=== PATIENT | female | born 1995 | race African-American/Black ===

== ENCOUNTER 2017-05-13 17:09 | Emergency (ER) | payer MEDICAID, OTHER ==
[~2017-05-13] VITALS: Ht 180.3 cm; Wt 80.0 kg
[2017-05-13] MEDS ORDERED: MORPHINE SULFATE 4 MG/ML CPJ (NOT FOR IM USE) IV STA (21:57)
[2017-05-13] MEDS ORDERED: ONDANSETRON HCL 4MG/2ML VIAL IV STA (21:57)
[2017-05-13] MEDS ORDERED: SODIUM CHLORIDE 0.9% 1,000 ML IV ONE (21:57)
[2017-05-13 22:36] LABS: BASOPHILS % 0.8 % (0.0-2.0); EOSINOPHILS % 1.6 % (0.0-5.0); HEMATOCRIT. 38.5 % (36.0-48.0); HEMOGLOBIN. 12.7 g/dL (12.0-16.0); MEAN CORPUSCULAR HEMOGLOBIN 27.9 pg (28.0-32.0); MEAN CORPUSCULAR VOLUME 84.2 fL (81.0-99.0); MEAN PLATELET VOLUME 8.5 fl (7.4-10.4); MONOCYTES % 10.1 % (2.0-8.0); NEUTROPHILS % 46.5 % (40.0-76.0); PLATELET 166 x1000/uL (130-400); RED BLOOD CELL COUNT 4.57 mill/uL (4.2-5.4); RED CELL DISTRIBUTION WIDTH 13.7 % (11.6-14.6)
[2017-05-13 22:43] LABS: CHLORIDE 106 mEq/L (98-107)
[2017-05-13 22:44] LABS: CARBON DIOXIDE 28 mEq/L (21-32)
[2017-05-13 23:00] LABS: CLARITY URINE CLEAR (CLEAR); COLOR URINE YELLOW (YELLOW); GLUCOSE URINE NEGATIVE (NEGATIVE); KETONES URINE TRACE (NEGATIVE); LEUKOCYTE ESTERASE URINE NEGATIVE (NEGATIVE); NITRITE URINE NEGATIVE (NEGATIVE); OCCULT BLOOD URINE NEGATIVE (NEGATIVE); PROTEIN URINE 1+ (NEGATIVE); SPECIFIC GRAVITY URINE 1.029 (1.005-1.030)
[2017-05-13 23:25] LABS: UCG SCREEN NEGATIVE
[2017-05-14 00:17] VITALS: BP 115/78
== END 2017-05-14 00:31 | disposition home or self-care (01) ==
LOC: ER 17:09
DX: R10.84 Generalized abdominal pain (principal); Z98.890 Other specified postprocedural states
CPT/HCPCS: 36415; 80053; 81001; 81025; 83690; 85025; 96361; 96374; 96375; 99285; J2270; J2405; J7030; Z7610

== ENCOUNTER 2018-12-02 04:37 | Observation (INO) | payer OTHER ==
[~2018-12-02] VITALS: Ht 180.3 cm; Wt 102.5 kg
[2018-12-02] MEDS ORDERED: LACTATED RINGERS 1,000 ML IV SCH (05:45)
[2018-12-02] MEDS ORDERED: ACETAMINOPHEN 500MG TABLET PO SCH (05:45)
[2018-12-02] MEDS ORDERED: CEFAZOLIN 2,000 MG in DEXT 5% WATER 100 ML IV SCH (06:00)
[2018-12-02 06:14] LABS: CLARITY URINE CLOUDY (CLEAR); COLOR URINE YELLOW (YELLOW); KETONES URINE NEGATIVE (NEGATIVE); LEUKOCYTE ESTERASE URINE 1+ (NEGATIVE); NITRITE URINE NEGATIVE (NEGATIVE); OCCULT BLOOD URINE 2+ (NEGATIVE); PH URINE 7.5 (4.5-8.0); PROTEIN URINE 3+ (NEGATIVE); UROBILINOGEN URINE 0.2 E.U./dL (0.2-1.0)
== END 2018-12-02 08:20 | disposition home or self-care (01) ==
LOC: 8 EST LDRP 04:37
PROVIDERS: ADMIT Obstetrics & Gynecology; ATTEND Obstetrics & Gynecology
DX: O26.893 Other specified pregnancy related conditions, third trimester (principal); R10.9 Unspecified abdominal pain; Z3A.35 35 weeks gestation of pregnancy
CPT/HCPCS: 81003; 87077; 87086; 87186; 96365; 99281; G0378; J0690; J7060; 96360; 96361

== ENCOUNTER 2019-09-12 17:47 | Emergency (ER) | payer OTHER ==
[~2019-09-12] VITALS: Ht 182.9 cm; Wt 120.0 kg
[2019-09-12 18:55] VITALS: BP 137/57
[2019-09-12] MEDS ORDERED: IBUPROFEN 800MG TABLET PO ONE (19:00)
== END 2019-09-12 23:54 | disposition home or self-care (01) ==
LOC: ER 17:47
DX: S39.012A Strain of muscle, fascia and tendon of lower back, initial encounter (principal); V49.50XA Passenger injured in collision with unspecified motor vehicles in traffic accident, initial encounter; Y93.89 Activity, other specified; Y92.410 Unspecified street and highway as the place of occurrence of the external cause
CPT/HCPCS: 99282

== ENCOUNTER 2020-03-27 11:52 | Emergency (ER) | payer OTHER ==
[~2020-03-27] VITALS: Ht 180.3 cm; Wt 104.0 kg
[2020-03-27] MEDS ORDERED: FAMOTIDINE 20MG/2ML VIAL IV STA (12:52)
[2020-03-27] MEDS ORDERED: VISCOUS LIDOCAINE 2% 15 ML UDC PO STA (12:52)
[2020-03-27] MEDS ORDERED: ONDANSETRON HCL 4MG/2ML INJ IV STA (12:52)
[2020-03-27] MEDS ORDERED: MAGNESIUM/ALUMINUM HYDROXIDE/SIMETHICONE 30ML UDC PO STA (12:52)
[2020-03-27 13:02] LABS: CLARITY URINE CLEAR (CLEAR); COLOR URINE YELLOW (YELLOW); KETONES URINE NEGATIVE (NEGATIVE); LEUKOCYTE ESTERASE URINE NEGATIVE (NEGATIVE); NITRITE URINE NEGATIVE (NEGATIVE); OCCULT BLOOD URINE 1+ (NEGATIVE); PROTEIN URINE NEGATIVE (NEGATIVE); SPECIFIC GRAVITY URINE 1.017 (1.005-1.030); UROBILINOGEN URINE 0.2 E.U./dL (0.2-1.0)
[2020-03-27 13:03] LABS: BASOPHILS % 0.7 % (0.0-2.0); EOSINOPHILS % 2.1 % (0.0-5.0); HEMATOCRIT. 40.4 % (36.0-48.0); HEMOGLOBIN. 13.5 g/dL (12.0-16.0); LYMPHOCYTES % 39.5 % (20.0-50.0); MEAN CORPUSCULAR HEMOGLOBIN 28.4 pg (28.0-32.0); MEAN CORPUSCULAR VOLUME 84.9 fL (81.0-99.0); MEAN PLATELET VOLUME 8.8 fl (7.4-10.4); MONOCYTES % 11.5 % (2.0-8.0); NEUTROPHILS % 46.2 % (40.0-76.0); PLATELET 199 x1000/uL (130-400); RED BLOOD CELL COUNT 4.76 mill/uL (4.2-5.4); RED CELL DISTRIBUTION WIDTH 14.2 % (11.6-14.6)
[2020-03-27 13:05] LABS: CHLORIDE 108 mEq/L (98-107)
[2020-03-27 13:19] LABS: B-HCG QUANTITATIVE 59 mIU/mL (<3)
[2020-03-27 15:00] VITALS: BP 113/66
== END 2020-03-27 15:16 | disposition home or self-care (01) ==
LOC: ER 11:52
DX: R10.13 Epigastric pain (principal); R11.0 Nausea
CPT/HCPCS: 36415; 76830; 76856; 80053; 81003; 81025; 83690; 84702; 85025; 96374; 96375; 99284; J2405; J3490

== ENCOUNTER 2022-03-26 06:23 | Emergency (ER) | payer MEDICAID, OTHER ==
[~2022-03-26] VITALS: Ht 180.3 cm; Wt 105.0 kg
[2022-03-26] MEDS ORDERED: HYDROCODONE/ACETAMINOPHEN 5/325MG TABLET PO ONE (08:45)
[2022-03-26] MEDS ORDERED: IBUPROFEN 600MG TABLET PO ONE (08:45)
[2022-03-26 09:55] VITALS: BP 96/69
[2022-03-26 10:48] LABS: CLARITY URINE CLOUDY (CLEAR); COLOR URINE YELLOW (YELLOW); KETONES URINE TRACE (NEGATIVE); LEUKOCYTE ESTERASE URINE 2+ (NEGATIVE); NITRITE URINE POSITIVE (NEGATIVE); OCCULT BLOOD URINE NEGATIVE (NEGATIVE); PH URINE 5.5 (4.5-8.0); PROTEIN URINE TRACE (NEGATIVE); SPECIFIC GRAVITY URINE 1.025 (1.005-1.030); UROBILINOGEN URINE 0.2 E.U./dL (0.2-1.0)
[2022-03-26] MEDS ORDERED: CEFTRIAXONE SODIUM 1 G/VIAL IM ONE (11:00)
[2022-03-26] MEDS ORDERED: CEPH500C2 MT (11:27)
== END 2022-03-26 11:26 | disposition left against medical advice (07) ==
LOC: ER 06:23
DX: N39.0 Urinary tract infection, site not specified (principal); B34.9 Viral infection, unspecified; Z86.16 Personal history of COVID-19; Z20.822 Contact with and (suspected) exposure to COVID-19
CPT/HCPCS: 71045; 81003; 87077; 87086; 87186; 87426; 87430; 87804; 99284; C9803